=== PATIENT | female | born 1985 | race African-American/Black ===

== ENCOUNTER 2022-06-08 09:08 | Emergency (ER) | payer MEDICAID ==
[2022-06-08] VITALS (9 sets, daily range): BP systolic 158–184; BP diastolic 81–106
[~2022-06-08] VITALS: Ht 154.9 cm; Wt 92.0 kg
[2022-06-08 09:31] LABS: HEMATOCRIT 35.1 % (37.0-47.0); HEMOGLOBIN 12.4 g/dl (12.0-16.0); IMMATURE GRANULOCYTES 0.4 % (0.0-5.0); MEAN CELL VOLUME 86.2 fL CALC (80.0-100.0); MEAN CORPUSCULAR HGB 30.5 pG CALC (26.0-32.0); MEAN CORPUSCULAR HGB CONC 35.3 g/dL CAL (32.0-36.0); NEUT# 2.5 thou/uL (2.00-7.15); RED BLOOD COUNT 4.07 mill/uL (4.20-5.60); RED CELL DISTRI WIDTH 11.7 % (11.5-15.5)
[2022-06-08 09:46] LABS: ALBUMIN 4.2 g/dL (3.2-5.0); ALKALINE PHOSPHATASE 110 u/l (38-126); ANION GAP 10 (6-22 (CALC)); BILIRUBIN, TOTAL 0.5 mg/dL (0.0-1.4); BUN 8 mg/dL (7-17); BUN/CREATININE RATIO 11 (12-20 (CALC)); CARBON DIOXIDE 25 mmol/l (22-30); CHLORIDE 112 mmol/l (95-108); CREATININE 0.7 mg/dL (0.5-1.0); GFR FOR AFR.AMER. > 60 ML/MIN (>=60 (CALC)); GFR OTHER RACES > 60 ML/MIN (>=60 (CALC)); LIPASE 23 u/l (23-300); POTASSIUM 3.2 mmol/l (3.5-5.1); SGOT/AST 23 u/l (14-36); SODIUM 143 mmol/l (137-146); TOTAL PROTEIN 7.4 g/dL (6.3-8.2)
[2022-06-08] MEDS ORDERED: BIKTARVY 50-2001 TAB (09:48)
[2022-06-08 10:54] LABS: URINE BILIRUBIN - DIPSTICK NEGATIVE (NEGATIVE); URINE BLOOD DIPSTICK NEGATIVE (NEGATIVE); URINE COLOR YELLOW; URINE GLUCOSE - DIPSTICK NEGATIVE (NEGATIVE); URINE KETONE NEGATIVE (NEGATIVE); URINE LEUK ESTERASE NEGATIVE (NEGATIVE); URINE PROTEIN - DIPSTICK TRACE mg/dL (NEG-TRACE); URINE SPECIFIC GRAVITY >=1.030; URINE UROBILINOGEN - DIPSTICK 0.2 E.U./dL (0.2)
[2022-06-08 11:00] LABS: URINE NITRITE - DIPSTICK NEGATIVE (Negative)
[2022-06-08] MEDS ORDERED: PEPCID AC20 M1 PO (11:05)
[2022-06-08] MEDS ORDERED: BIKTARVY 50-2001 TAB PO (11:05)
[2022-06-08] MEDS ORDERED: ZOFRAN4 MG/TAB PO (11:10)
== END 2022-06-08 11:35 | disposition home or self-care (01) ==
LOC: ED 09:08
PROVIDERS: Family Medicine
DX: R10.13 Epigastric pain (principal); E66.9 Obesity, unspecified; Z21 Asymptomatic human immunodeficiency virus [HIV] infection status
CPT/HCPCS: Q9967; S0164

== ENCOUNTER 2024-04-11 10:15 | Emergency (ER) | payer OTHER, MEDICARE, MEDICAID ==
[~2024-04-11] VITALS: Ht 154.9 cm; Wt 89.0 kg
[2024-04-11] VITALS (11 sets, daily range): BP systolic 111–133; BP diastolic 64–90
[~2024-04-11 10:15] MED LIST: BIKTARVY 50-2001 TAB; BIKTARVY 50-2001 TAB PO; PEPCID AC20 M1 PO; PEPCID20 MG PO; ZOFRAN4 MG/TAB PO
[2024-04-11] MEDS ORDERED: ORPHENADRINE CITRATE 30 MG/ML AMP IM ONE (11:25)
[2024-04-11] MEDS ORDERED: FLEXERIL5 M1 PO (13:16)
[2024-04-11] MEDS ORDERED: NAPROXEN500 MG PO (13:16)
== END 2024-04-11 14:00 | disposition home or self-care (01) | DRG 552 ==
LOC: ED 10:15
DX: M54.6 Pain in thoracic spine (principal); M54.50 Low back pain, unspecified; I10 Essential (primary) hypertension; K21.9 Gastro-esophageal reflux disease without esophagitis; Z21 Asymptomatic human immunodeficiency virus [HIV] infection status; Z79.899 Other long term (current) drug therapy; V53.6XXA Passenger in pick-up truck or van injured in collision with car, pick-up truck or van in traffic accident, initial encounter

== ENCOUNTER 2024-05-13 10:26 | Emergency (ER) | payer MEDICARE, MEDICAID ==
[~2024-05-13] VITALS: Ht 154.9 cm; Wt 88.9 kg
[2024-05-13] VITALS (12 sets, daily range): BP systolic 131–174; BP diastolic 80–108
[~2024-05-13 10:26] MED LIST changes: +FLEXERIL5 M1 PO; +NAPROXEN500 MG PO
[2024-05-13] MEDS ORDERED: PROMETHAZINE HCL 25 MG/ML AMP IV STA (11:24)
[2024-05-13] MEDS ORDERED: SODIUM CHLORIDE 0.9% 1,000 ML IV STA (11:24)
[2024-05-13] MEDS ORDERED: FAMOTIDINE 10MG/ML 2ML SDV IV ONE (11:25)
[2024-05-13 11:33] LABS: URINE BILIRUBIN - DIPSTICK Negative (NEGATIVE); URINE BLOOD DIPSTICK Negative (NEGATIVE); URINE GLUCOSE - DIPSTICK Negative (NEGATIVE); URINE KETONE Negative (NEGATIVE); URINE LEUK ESTERASE Negative (NEGATIVE); URINE NITRITE - DIPSTICK Negative (Negative); URINE PROTEIN - DIPSTICK Trace mg/dL (NEG-TRACE); URINE SPECIFIC GRAVITY 1.025
[2024-05-13 11:34] LABS: URINE COLOR Yellow
[2024-05-13 11:43] LABS: BASO% 0.3 % (0-3); EOS% 1.2 % (0-8); HEMATOCRIT 34.9 % (37.0-47.0); HEMOGLOBIN 11.7 g/dl (12.0-16.0); LYMPH% 26.2 % (15-41); MEAN CELL VOLUME 87.9 fL CALC (80.0-100.0); MEAN CORPUSCULAR HGB 29.5 pG CALC (26.0-32.0); MEAN CORPUSCULAR HGB CONC 33.5 g/dL CAL (32.0-36.0); MONO% 8.4 % (2-13); NEUT# 2.22 thou/uL (2.00-7.15); NEUT% 63.9 % (42-76); RED BLOOD COUNT 3.97 mill/uL (4.20-5.60); RED CELL DISTRI WIDTH 12.6 % (11.5-15.5)
[2024-05-13 12:00] LABS: ALBUMIN 4.7 g/dL (3.2-5.0); BILIRUBIN, TOTAL 0.7 mg/dL (0.02-1.3); CREATININE 0.7 mg/dL (0.5-1.0); POTASSIUM 4.4 mmol/l (3.5-5.1); TOTAL PROTEIN 8.2 g/dL (6.3-8.2)
[2024-05-13] MEDS ORDERED: ONDANSETRON HCl 4 MG/2 ML SDV ONE (17:06)
[2024-05-13] MEDS ORDERED: METOPROLOL TARTRATE 5 MG/5 ML VIAL IV ONE (17:06)
[2024-05-13] MEDS ORDERED: ONDANSETRON HCl 4 MG/2 ML SDV IM ONE (17:35)
[2024-05-13] MEDS ORDERED: METOPROLOL SUCCINATE 25 MG/TAB-TOPROL XL PO ONE (17:35)
== END 2024-05-13 18:53 | disposition home or self-care (01) ==
LOC: ED 10:26
PROVIDERS: Emergency Medicine
DX: R11.2 Nausea with vomiting, unspecified (principal); R10.9 Unspecified abdominal pain; F12.988 Cannabis use, unspecified with other cannabis-induced disorder; I10 Essential (primary) hypertension; K21.9 Gastro-esophageal reflux disease without esophagitis; Z21 Asymptomatic human immunodeficiency virus [HIV] infection status; Z79.899 Other long term (current) drug therapy
CPT/HCPCS: Q9967

== ENCOUNTER 2024-09-20 09:05 | Observation (INO) | payer MEDICARE, MEDICAID ==
[~2024-09-20] VITALS: Ht 154.9 cm; Wt 90.3 kg
[2024-09-20] VITALS (28 sets, daily range): BP systolic 111–190; BP diastolic 70–122
--- NOTE | 2024-09-20 09:05 | NUR ---
PT WALKED BACK TO ER ROOM 2 WITH A STEADY GAIT
[2024-09-20] MEDS ORDERED: ONDANSETRON HCl 4 MG/2 ML SDV IV ONE ×2 (09:25→14:40)
[2024-09-20] MEDS ORDERED: NITROGLYCERIN 0.4 MG/TAB SL ONE (09:25)
[2024-09-20 09:36] LABS: BASO% 0.4 % (0-3); EOS% 1.2 % (0-8); HEMATOCRIT 32.3 % (37.0-47.0); HEMOGLOBIN 10.5 g/dl (12.0-16.0); LYMPH% 31.4 % (15-41); MEAN CELL VOLUME 89.5 fL CALC (80.0-100.0); MEAN CORPUSCULAR HGB 29.1 pG CALC (26.0-32.0); MEAN CORPUSCULAR HGB CONC 32.5 g/dL CAL (32.0-36.0); MONO% 10.1 % (2-13); NEUT# 1.47 thou/uL (2.00-7.15); NEUT% 56.9 % (42-76); RED BLOOD COUNT 3.61 mill/uL (4.20-5.60); RED CELL DISTRI WIDTH 12.9 % (11.5-15.5)
[2024-09-20 09:49] LABS: ALBUMIN 4.7 g/dL (3.2-5.0); ANION GAP 12 (6-22 (CALC)); BILIRUBIN, TOTAL 0.6 mg/dL (0.02-1.3); BUN 17 mg/dL (7-17); BUN/CREATININE RATIO 21 (12-20 (CALC)); CARBON DIOXIDE 26 mmol/l (22-30); CHLORIDE 106 mmol/l (95-108); CREATININE 0.8 mg/dL (0.5-1.0); ESTIMATED GFR 96 ML/MIN (>=90 (CALC)); POTASSIUM 3.7 mmol/l (3.5-5.1); SGOT/AST 55 u/l (14-36); SODIUM 140 mmol/l (137-146); TOTAL PROTEIN 8.1 g/dL (6.3-8.2)
--- NOTE | 2024-09-20 09:57 | NUR ---
PATIENT STATES NAUSEA HAS RESOLVED
--- NOTE | 2024-09-20 10:12 | NUR ---
PATIENT REPORTS CHEST PAIN IS LESS DUE TO NAUSEA RESOLVING
[2024-09-20 10:33] LABS: ALKALINE PHOSPHATASE 196 u/l (38-126)
[2024-09-20] MEDS ORDERED: PROMETHAZINE HCL 25 MG/ML AMP IM ONE (10:35)
[2024-09-20] MEDS ORDERED: hydrALAZINE HCL 20 MG/ML VIAL(1 ML) IV ONE (11:25)
--- NOTE | 2024-09-20 13:40 | NUR ---
Reassessment of patient completed. No distress noted.
[2024-09-20] MEDS ORDERED: DILTIAZEM HCL 125 MG in SODIUM CHLORIDE 0.9% 100 ML IV ONE (14:05)
[2024-09-20] MEDS ORDERED: dilTIAZem HCL 50 MG/10 ML SDV IV ONE (14:05)
[2024-09-20] MEDS ORDERED: SODIUM CHLORIDE 0.9% 250 ML IV PRN (14:05)
[2024-09-20] MEDS ORDERED: CLOPIDOGREL BISULFATE 75 MG/TAB TAB PO ONE (14:15)
[2024-09-20] MEDS ORDERED: SODIUM CHLORIDE 0.9% 1,000 ML IV ONE (14:45)
[2024-09-20] MEDS ORDERED: MAGNESIUM HYDROXIDE 30 ML UDC PO PRN (15:05)
[2024-09-20] MEDS ORDERED: ACETAMINOPHEN 325 MG/TAB PO PRN (15:05)
--- NOTE | 2024-09-20 15:16 | NUR ---
PATIENT RETURN'S SINUS RHYTHM, 12 LEAD EKG COMPLETED, CALL PLACED TO RUTH BENAVIDEZ. ON HOLD.
--- NOTE | 2024-09-20 15:16 | NUR ---
PATIENT RETURNS TO SINUS RHYTHM, 12 LEAD EKG COMPLETED CALL PLACED TO DR HOLGUIN
--- NOTE | 2024-09-20 15:35 | NUR ---
PATIENT RETURN'S TO A-FIB CARDIZEM gTT CONTINUES
--- NOTE | 2024-09-20 15:46 | NUR ---
CALL PLACED TO ICU FOR REPORT.
[2024-09-20] MEDS ORDERED: METOPROLOL TARTRATE 25 MG/TAB PO SCH (16:00)
--- NOTE | 2024-09-20 16:10 | NUR ---
NURSE TO NURSE REPORT COMPLETED FOR ICU ROOM 7
--- NOTE | 2024-09-20 16:31 | NUR ---
PT ARRIVED TO ICU BED 7 VIA STRETCHER. A&O X4. PT AMBULATED WITH STEADY GAIT AND STAND BY ASSIST FROM STRETCHER TO BED. CARDIZEM GTT INFUSING AT 10MG/HR. TWO IV SITES NOTED, SITES APPEARS HEALTHY. PT ORIENTED TO ROOM AND CALL LIGHT SYSTEM. DISCUSSED POC AT THIS TIME. PT VERBALIZED UNDERSTANDING.
[2024-09-20] MEDS ORDERED: ONDANSETRON HCl 4 MG/2 ML SDV IV PRN (17:55)
[2024-09-20] MEDS ORDERED: COZAAR25 MG PO (18:27)
[2024-09-20] MEDS ORDERED: MULTIVITAMI3 (18:28)
--- NOTE | 2024-09-20 19:00 | NUR ---
RECEIVED PATIENT VIA NURSE HANDOFF. PATIENT IS SEEN RESTING COMFORTABLY WITH FAMILY BEDSIDE. CARDIZEM GTT AT 10, THROUGH PATENT IV (+) FLUSHED WITHOUT ISSUES. EDUCATED SHIP RIGGER LIGHT AND FALL PRECAUTIONS. DEMONSTRATED UNDERSTANDING. RESTING CALMLY WITH CALL LIGHT WITHIN REACH.
[2024-09-20] MEDS ORDERED: APIXABAN BASE 5 MG TAB PO SCH (21:00)
[2024-09-20] MEDS ORDERED: DILTIAZEM HCL 125 MG in SODIUM CHLORIDE 0.9% 100 ML IV PRN (21:50)
--- NOTE | 2024-09-20 23:00 | NUR ---
ASSISTED WITH SELF CARE, PATIENT BEGAN MENSTRATING AND WAS ASSISTED TO PERFORM LUCA/SELF CARE. FEMININE PRODUCTS SUPPLIED FOR COMFORT. DENIES PAIN, REMAINS ON CARDIZEM GTT AT 10 VSS. CALL LIGHT WITHIN REACH
--- NOTE | 2024-09-21 01:00 | NUR ---
PT C/O NAUSEA, NO VOMITING - REQUESTED TO ATTEMPT SOFT FOODS TO SETTLE STOMACH. MANN ANDREY AND JELLO OFFERED. VSS, DENIES PAIN. CONTROLLED AFIB ON CARDIZEM AT 10 WITHOUT DISTRESS/CONCERNS. CALL LIGHT WITHIN REACH
--- NOTE | 2024-09-21 03:00 | NUR ---
ADMINISTERED ZOFRAN 4MG PER MD ORDER FOR PERSISTENT NAUSEA. POSITIVE EFFECT. REDUCED CARDIZEM GTT TO 5, BP AND VITALS STABLE, RATE CONTROLLED IN THE UPPER 60S TO MID 70S. RESTING CALMLY WITH NO SIGN OF DISTRESS AND CALL LIGHT WITHIN REACH.
--- NOTE | 2024-09-21 04:18 | NUR ---
PATIENT OBSERVED SLEEPING SOUNDLY. VSS, NO SIGN OF DISTRESS OR CONCERN. CARDIZEM GTT AT 5, REMAINS RATE STABLE AND CONTROLLED WITH REDUCTION. CALL LIGHT OBSERVED WITHIN REACH
[2024-09-21 05:46] LABS: BILIRUBIN, TOTAL 0.7 mg/dL (0.02-1.3); CREATININE 0.6 mg/dL (0.5-1.0); MAGNESIUM 1.8 mg/dL (1.6-2.3); POTASSIUM 3.7 mmol/l (3.5-5.1); TOTAL PROTEIN 6.9 g/dL (6.3-8.2)
--- NOTE | 2024-09-21 05:47 | NUR ---
PATIENT REMAINS STABLE WITH NO SIGNS OF DISTRESS RESTING COMFORTABLY WITH FALL PRECAUTIONS IN PLACE AND CALL LIGHT WITHIN REACH
[2024-09-21 06:14] LABS: HEMATOCRIT 33.9 % (37.0-47.0); HEMOGLOBIN 11.4 g/dl (12.0-16.0); MEAN CELL VOLUME 88.3 fL CALC (80.0-100.0); MEAN CORPUSCULAR HGB 29.7 pG CALC (26.0-32.0); MEAN CORPUSCULAR HGB CONC 33.6 g/dL CAL (32.0-36.0); PLATELET COUNT 126 thou/uL (130-400); RED BLOOD COUNT 3.84 mill/uL (4.20-5.60); RED CELL DISTRI WIDTH 12.8 % (11.5-15.5)
--- NOTE | 2024-09-21 07:02 | NUR ---
PT REPORT FROM [facility] DEPARTMENT END FINDER. PT SLEEPING AT THE TIME THIS NURSE WALKED INTO ROOM, EASILY AWAKENED, NO COMPLAINTS AT THIS TIME, CARDIZEM DRIP INFUSING.
[2024-09-21 07:19] LABS: MANUAL DIFFERENTIAL YES
[2024-09-21 07:27] LABS: BAND 0 % (0-8); PLATELET ESTIMATE SLIGHT DECREASE
[2024-09-21] MEDS ORDERED: LOPRESSOR25 MG PO (08:17)
[2024-09-21] MEDS ORDERED: ELIQUIS5 MG PO (08:17)
[2024-09-21 09:08] VITALS: BP 115/71
--- NOTE | 2024-09-21 11:04 | NUR ---
PT IV D/C, SITE HEALTHY. DISCHARGE INSTRUCTIONS GIVEN, PT VOICES UNDERSTANDING. PT W/C TO CAR WITH FAMILY
== END 2024-09-21 10:09 | disposition home or self-care (01) ==
LOC: ED 09:05 → ED-I 13:56 → ED 14:13 → ICU 14:14 → ED-I 14:14 → ICU 15:30
PROVIDERS: Family Medicine; ADMIT Internal Medicine; ATTEND Internal Medicine
DX: I48.91 Unspecified atrial fibrillation (principal); I10 Essential (primary) hypertension; K21.9 Gastro-esophageal reflux disease without esophagitis; E66.9 Obesity, unspecified; Z21 Asymptomatic human immunodeficiency virus [HIV] infection status; Z20.822 Contact with and (suspected) exposure to COVID-19; R07.9 Chest pain, unspecified
CPT/HCPCS: J0360; J2405; J2550

== ENCOUNTER 2024-10-01 11:41 | Emergency (ER) | payer MEDICARE, MEDICAID ==
[2024-10-01] VITALS (11 sets, daily range): BP systolic 119–168; BP diastolic 73–88
[~2024-10-01] VITALS: Ht 154.9 cm; Wt 86.0 kg
[~2024-10-01 11:41] MED LIST changes: +COZAAR25 MG PO; +ELIQUIS5 MG PO; +LOPRESSOR25 MG PO; +MULTIVITAMI3
[2024-10-01 12:42] LABS: EOS% 0.9 % (0-8); HEMOGLOBIN 10.2 g/dl (12.0-16.0); MEAN CELL VOLUME 86.7 fL CALC (80.0-100.0); MEAN CORPUSCULAR HGB 29.5 pG CALC (26.0-32.0); MONO% 10.9 % (2-13); NEUT# 1.27 thou/uL (2.00-7.15); NEUT% 55.2 % (42-76); RED BLOOD COUNT 3.46 mill/uL (4.20-5.60); RED CELL DISTRI WIDTH 12.8 % (11.5-15.5)
[2024-10-01 12:51] LABS: ALBUMIN 4.1 g/dL (3.2-5.0); ALKALINE PHOSPHATASE 89 u/l (38-126); ANION GAP 9 (6-22 (CALC)); BILIRUBIN, TOTAL 0.7 mg/dL (0.02-1.3); BUN 10 mg/dL (7-17); BUN/CREATININE RATIO 13 (12-20 (CALC)); CARBON DIOXIDE 26 mmol/l (22-30); CHLORIDE 108 mmol/l (95-108); CREATININE 0.7 mg/dL (0.5-1.0); ESTIMATED GFR 113 ML/MIN (>=90 (CALC)); LIPASE 24 u/l (23-300); POTASSIUM 3.7 mmol/l (3.5-5.1); SGOT/AST 32 u/l (14-36); SODIUM 140 mmol/l (137-146); TOTAL PROTEIN 7.2 g/dL (6.3-8.2)
[2024-10-01] MEDS ORDERED: LIDOCAINE VISCOUS 2% 15 ML UDC PO ONE (13:00)
[2024-10-01] MEDS ORDERED: ALUM & MAG HYDROX-SIMETHICONE 30 ML PO ONE (13:00)
[2024-10-01] MEDS ORDERED: ONDANSETRON HCl 4 MG/2 ML SDV IV ONE (13:00)
[2024-10-01] MEDS ORDERED: ZOFRAN4 MG/TAB PO (15:31)
== END 2024-10-01 17:03 | disposition home or self-care (01) ==
LOC: ED 11:41
PROVIDERS: Family Medicine
DX: R07.9 Chest pain, unspecified (principal); I48.91 Unspecified atrial fibrillation; I10 Essential (primary) hypertension; Z21 Asymptomatic human immunodeficiency virus [HIV] infection status; K21.9 Gastro-esophageal reflux disease without esophagitis
CPT/HCPCS: J2405

== ENCOUNTER 2024-10-02 20:23 | Emergency (ER) | payer MEDICARE, MEDICAID ==
[~2024-10-02] VITALS: Ht 154.9 cm; Wt 86.0 kg
[2024-10-02 21:58] LABS: URINE BLOOD DIPSTICK Trace-intact (NEGATIVE); URINE COLOR Yellow; URINE GLUCOSE - DIPSTICK Negative (NEGATIVE); URINE KETONE 15 mg/dL (NEGATIVE); URINE LEUK ESTERASE Negative (NEGATIVE); URINE NITRITE - DIPSTICK Negative (Negative); URINE PROTEIN - DIPSTICK Negative (NEG-TRACE); URINE SPECIFIC GRAVITY 1.025; URINE UROBILINOGEN - DIPSTICK 0.2 E.U./dL (0.2)
[2024-10-02 22:18] LABS: EOS% 0.8 % (0-8); HEMATOCRIT 31.3 % (37.0-47.0); HEMOGLOBIN 10.7 g/dl (12.0-16.0); LYMPH% 25.9 % (15-41); MEAN CELL VOLUME 85.5 fL CALC (80.0-100.0); MEAN CORPUSCULAR HGB 29.2 pG CALC (26.0-32.0); MEAN CORPUSCULAR HGB CONC 34.2 g/dL CAL (32.0-36.0); MONO% 7.6 % (2-13); NEUT# 1.73 thou/uL (2.00-7.15); NEUT% 65.7 % (42-76); RED BLOOD COUNT 3.66 mill/uL (4.20-5.60); RED CELL DISTRI WIDTH 12.6 % (11.5-15.5)
[2024-10-02 22:19] VITALS: BP 111/63
[2024-10-02 22:29] LABS: ALBUMIN 4.3 g/dL (3.2-5.0); ALKALINE PHOSPHATASE 109 u/l (38-126); AMYLASE 63 u/l (30-110); ANION GAP 11 (6-22 (CALC)); BILIRUBIN, TOTAL 0.7 mg/dL (0.02-1.3); BUN 11 mg/dL (7-17); BUN/CREATININE RATIO 14 (12-20 (CALC)); CARBON DIOXIDE 27 mmol/l (22-30); CHLORIDE 108 mmol/l (95-108); CPK 149 u/l (30-135); CREATININE 0.8 mg/dL (0.5-1.0); ESTIMATED GFR 96 ML/MIN (>=90 (CALC)); LIPASE 25 u/l (23-300); POTASSIUM 3.4 mmol/l (3.5-5.1); SGOT/AST 30 u/l (14-36); SODIUM 142 mmol/l (137-146); TOTAL PROTEIN 7.6 g/dL (6.3-8.2)
[2024-10-02 22:30] VITALS: BP 108/69
[2024-10-02] MEDS ORDERED: ONDANSETRON HCl 4 MG/2 ML SDV IV ONE (23:15)
[2024-10-02] MEDS ORDERED: PANTOPRAZOLE SODIUM Sesquihydr 40 MG/TAB PO ONE (23:35)
[2024-10-02] MEDS ORDERED: oxyCODONE 5MG/ ACETAMINOPHEN 325MG TAB PO ONE (23:35)
[2024-10-02] MEDS ORDERED: ONDANSETRON 4 MG/TAB ODT PO ONE (23:35)
[2024-10-02] MEDS ORDERED: DIATRIZOATE MEGLUMINE & SODIUM 30 ML/BTL PO ONE (23:55)
[2024-10-02] MEDS ORDERED: Barium Sulfate (Readi-Cat 2 Berry) 450 ML/BTL PO ONE (23:55)
[2024-10-02] MEDS ORDERED: Barium Sulfate (Readi-Cat 2 Banana) 450 ML/BTL PO ONE (23:55)
[2024-10-03 00:34] VITALS: BP 166/86
[2024-10-03] MEDS ORDERED: METOCLOPRAMIDE HCL 10 MG/2 ML SDV IV ONE (00:45)
[2024-10-03] MEDS ORDERED: SODIUM CHLORIDE 0.9% 1,000 ML IV ONE (00:45)
[2024-10-03] MEDS ORDERED: MORPHINE SULFATE 4 MG/ML VIAL IV ONE (00:45)
[2024-10-03 01:01] VITALS: BP 163/83
[2024-10-03 01:31] VITALS: BP 110/65
[2024-10-03 02:00] VITALS: BP 107/60
[2024-10-03 02:30] VITALS: BP 111/70
[2024-10-03] MEDS ORDERED: PROTONIX40 MG PO (04:09)
[2024-10-03] MEDS ORDERED: ZOFRAN4 MG/TAB PO (04:09)
[2024-10-03 04:36] VITALS: BP 111/70
== END 2024-10-03 04:55 | disposition home or self-care (01) ==
LOC: ED 20:23
PROVIDERS: Family Medicine
DX: R10.12 Left upper quadrant pain (principal); I48.91 Unspecified atrial fibrillation; Q44.1 Other congenital malformations of gallbladder; I10 Essential (primary) hypertension; Z20.822 Contact with and (suspected) exposure to COVID-19
CPT/HCPCS: J2765